=== PATIENT | male | born 1985 | race Caucasian/White ===

== ENCOUNTER 2022-08-10 15:41 | Emergency (ER) | payer MEDICAID | END 2022-08-10 16:15 | disposition home or self-care (01) | LOC: JP.ED 15:41 | DX: F10.230 Alcohol dependence with withdrawal, uncomplicated (principal); I10 Essential (primary) hypertension; I25.2 Old myocardial infarction | CPT/HCPCS: 99285 ==

== ENCOUNTER 2022-08-11 11:46 | Emergency (ER) | payer MEDICAID ==
[2022-08-11] MEDS ORDERED: Pantoprazole 40 MG Vial IVPUSH ONE (12:36)
[2022-08-11 13:06] LABS: ESTIMATED GFR 122 mL/min (>60)
== END 2022-08-11 14:31 ==
LOC: JP.ED 11:46
DX: K92.0 Hematemesis (principal); D64.9 Anemia, unspecified; F10.20 Alcohol dependence, uncomplicated; I10 Essential (primary) hypertension; I25.2 Old myocardial infarction; Z72.0 Tobacco use
CPT/HCPCS: 36415; 80053; 83690; 85025; 96374; 99285; C9113